=== PATIENT | male | born 1975 | race Caucasian/White ===

== ENCOUNTER 2018-08-09 16:02 | Emergency (ER) | payer OTHER ==
[2018-08-09 16:14] VITALS: BP 161/85; PULSE 74; TEMP 97.9; BMI 40.0
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
[2018-08-09] MEDS ORDERED: NAPROXEN 500 MG TABLET (FP) PO ONE (16:41)
[2018-08-09] MEDS ORDERED: NAPROXEN 500 MG TABLET (FP) ONE (16:43)
== END 2018-08-09 17:03 | disposition home or self-care (01) ==
LOC: JERFT 16:02
DX: S13.4XXA Sprain of ligaments of cervical spine, initial encounter (principal); V49.49XA Driver injured in collision with other motor vehicles in traffic accident, initial encounter; Y92.414 Local residential or business street as the place of occurrence of the external cause; Y93.89 Activity, other specified; Y99.8 Other external cause status
CPT/HCPCS: 99281-25